=== PATIENT | female | born 1980 | race Caucasian/White ===

== ENCOUNTER 2018-04-13 22:00 | Emergency (ER) | payer OTHER, MEDICAID ==
[~2018-04-13] VITALS: Ht 170.2 cm; Wt 54.9 kg
[2018-04-13 22:05] VITALS: BP 118/65
[2018-04-13] MEDS ORDERED: DEXTROSE 50% 50 ML SYR IVP ONE (22:35)
[2018-04-13] MEDS ORDERED: ONDANSETRON 4 MG/2 ML VIAL IVP ONE (22:35)
[2018-04-13] MEDS ORDERED: NACL 0.9% 1,000 ML IV ONE (22:35)
[2018-04-14 01:22] LABS: ANION GAP 23.1 (8-16); CARBON DIOXIDE 17.9 mmol/L (21-32); CREATININE 0.8 mg/dL (0.6-1.3)
[2018-04-14] MEDS ORDERED: ONDANSETRON 4 MG/2 ML VIAL IVP ONE (01:25)
[2018-04-14 01:30] LABS: ALBUMIN 3.6 g/dL (3.4-5.0); TOTAL BILIRUBIN 0.2 mg/dL (0.0-1.0)
[2018-04-14] MEDS ORDERED: NACL 0.9% 1,000 ML IV ONE (01:50)
[2018-04-14] MEDS ORDERED: ACETAMINOPHEN EXTRA STRENGTH 500 MG TAB PO ONE (02:35)
[2018-04-14] MEDS ORDERED: KETOROLAC 30 MG/ML VIAL IVP ONE (02:35)
[2018-04-14 03:20] VITALS: BP 108/65
== END 2018-04-14 03:20 | disposition home or self-care (01) ==
LOC: MED 22:00
DX: F10.129 Alcohol abuse with intoxication, unspecified (principal); R11.2 Nausea with vomiting, unspecified; F41.9 Anxiety disorder, unspecified
CPT/HCPCS: 36415; 80053; 82948; 83690; 96361; 96374; 96375; 99283; J1885; J2405; J7030